=== PATIENT | female | born 1965 | race African-American/Black ===

== ENCOUNTER 2024-12-07 09:59 | Outpatient (CLI) | payer OTHER, SELFPAY ==
--- NOTE | ~2024-12-07 | MR_ITS ---
EXAMINATION: MR shoulder RT wo con DATE: 12/07/2024 11:10 INDICATION: Primary osteoarthritis of right shoulder. Right shoulder pain. TECHNIQUE: Magnetic resonance imaging (MRI) of the right shoulder was performed without intravenous c ontrast. Sequences included axial PD-weighted FS FSE, coronal oblique PD-weighted FS FSE and T2-weigh luis FS FSE, and sagittal oblique T2-weighted FS FSE and T1-weighted FSE. COMPARISON: None. FINDINGS: Coracoacromial arch: The acromion undersurface is flat in morphology (type I). There is severe acromioclavicular joint ost eoarthritis. There is mild subacromial/subdeltoid bursitis. Rotator cuff: There is a full-thickness tear of anterior supraspinatus tendon measuring 5 mm anterior to posterior by 3 mm proximal to distal. There is an articular sided partial thickness tear of supraspinatus tendo n. There is severe supraspinatus tendinopathy and mild infraspinatus tendinopathy. Teres minor tendon is normal. There is mild subscapularis tendinopathy. There is no asymmetric fatty atrophy of the rot ator cuff muscle bellies. Biceps tendon and glenoid labrum: Biceps tendon is in bicipital groove. There is mild intra-articular biceps tendinopathy. There is deg eneration of the glenoid labrum without well-defined tear. Fluid: There is a small glenohumeral joint effusion. Bones/cartilage: There is cartilage surface irregularity of humeral head and glenoid. IMPRESSION: 1. Full-thickness rotator cuff tear. 2. Mild glenohumeral joint chondrosis. 3. Severe acromioclavicular joint osteoarthritis. 4. Mild subacromial/subdeltoid bursitis and small glenohumeral joint effusion. 5. Mild intra-articular biceps tendinopathy. Reviewed, dictated and finalized at location A. [employer]
== END 2024-12-07 10:00 | disposition home or self-care (01) ==
LOC: MICIMG 10:00
PROVIDERS: PCP Family Medicine; Visit Provider Physician Assistant
DX: M19.011 Primary osteoarthritis, right shoulder (principal); M75.101 Unspecified rotator cuff tear or rupture of right shoulder, not specified as traumatic
CPT/HCPCS: 73221